=== PATIENT | female | born 1985 | race American Indian/Alaskan Native ===

== ENCOUNTER 2019-12-22 15:45 | Emergency (ER) | payer MEDICAID ==
[2019-12-22 16:17] VITALS: BP 132/92
--- NOTE | 2019-12-22 18:43 | Emergency Department Report ---
ED General Adult HPI - General Chief complaint: Weakness Stated complaint: BLOOD PRESSURE Time Seen by Provider: 12/22/19 18:35 Source: patient Mode of arrival: Ambulatory Limitations: No Limitations - History of Present Illness Initial comments: The patient was evaluated in the emergency department for symptoms described in the history of present illness. He/she was evaluated in the context of the global COVID-19 pandemic, which necessitated consideration that the patient might be at risk for infection with the virus that causes COVID-19. Institu tional protocols and algorithms that pertain to the evaluation of patients at risk for COVID-19 are in a state of rapid change based on information released by regulatory bodies including the CDC and federal and state organizations. These policies and algorithms were followed during the patient's care in the emergency department. Please note that these policies, procedures and recommendations changed on a rapid basis. 34-year-old -[place] female presents to the emergency room complaining of weakness. Patient states that she has been having a low blood pressure reading at home. Patient also reports that she has been on a 21-day fast. Patient states that she has been drinking liquids from 6 AM to 6 PM and from 12- 8 vegetables and had 1 week of meats. Patient states that she is drinking plenty of fluids. Patient does admit to a headache and had nausea in the morning. Patient admits to smoking weed but not in the last 21 days she socially drinks but not in the last 21 days. She does not smoke cigarettes. Patient reported to me as I was coming into the exam room that she was having anxiety issues. Patient states that her lowest blood pressure has been 96/55. Blood pressure in triage is 132/92. Patient reports no past medical history currently takes no medications on a daily basis no surgeries. No allergies. - Related Data Allergies Allergy/AdvReac Type Severity Reaction Status Date / Time No Known Allergies Allergy Unverified 12/22/19 16:15 ED Review of Systems ROS: Stated complaint: BLOOD PRESSURE Other details as noted in HPI Comment: All other systems reviewed and negative ED Past Medical Hx - Past Medical History Previous Medical History?: No - Surgical History Past Surgical History?: No ED Physical Exam - General Limitations: No Limitations General appearance: alert, in no apparent distress - Head Head exam: Present: atraumatic, normocephalic - Eye Eye exam: Present: normal appearance - ENT ENT exam: Present: mucous membranes moist - Neck Neck exam: Present: normal inspection - Respiratory Respiratory exam: Present: normal lung sounds bilaterally. Absent: respiratory distress - Cardiovascular Cardiovascular Exam: Present: regular rate, normal rhythm. Absent: systolic murmur, diastolic murmur, rubs, gallop - GI/Abdominal GI/Abdominal exam: Present: soft, normal bowel sounds - Extremities Exam Extremities exam: Present: normal inspection - Back Exam Back exam: Present: normal inspection - Neurological Exam Neurological exam: Present: alert, oriented X3 - Expanded Neurological Exam Expanded Patient oriented to: Present: person, place, time Cranial nerves: EOM's Intact: Normal, Gag Reflex: Normal, Tongue Deviation: Normal, Nystagmus: Normal, Facial Sensation: Normal, Facial Palsy with Forehead Movement: Normal, Facial Palsy without Forehead Movement: Normal Cerebellar function: Finger to Nose: Normal, Heel to [place]: Normal, Romberg: Normal Upper motor neuron: Denis Neglect: Normal, Pronator Drift: Normal, Sensory Extinction: Normal Sensory exam: Upper Extremity Light Touch: Normal, Upper Extremity Pin Prick: Normal, Upper Extremity Temperature: Normal, UE 2 Point Discrimination: Normal, Lower Extremity Light Touch: Normal, Lower Extremity Pin Prick: Normal, Lower Extremity Temperature: Normal, LE 2 Point Discrimination: Normal Motor strength exam: RUE: 4, LUE: 4, RLE: 4, LLE: 4 Best Eye Response (Arnaldo): (4) open spontaneously Best Motor Response ([place]): (6) obeys commands Best Verbal Response ([place]): (5) oriented [place] Total: 15 - Psychiatric Psychiatric exam: Present: normal affect, normal mood - Skin Skin exam: Present: warm, dry, intact, normal color. Absent: rash ED Course Vital Signs 12/22/19 16:13 Temperature 97.8 F Pulse Rate 62 Respiratory 18 Rate Blood Pressure 132/92 O2 Sat by Pulse 100 Oximetry ED Medical Decision Making - Medical Decision Making 34-year-old -[place] female presents to the emergency room complaining of weakness. Patient states that she has been having a low blood pressure reading at home. Patient also reports that she has been on a 21-day fast. Patient states that she has been drinking liquids from 6 AM to 6 PM and from 12- 8 vegetables and had 1 week of meats. Patient states that she is drinking plenty of fluids. Patient does admit to a headache and had nausea in the morning. Patient admits to smoking weed but not in the last 21 days she socially drinks but not in the last 21 days. She does not smoke cigarettes. Patient reported to me as I was coming into the exam room that she was having anxiety issues. Patient states that her lowest blood pressure has been 96/55. Blood pressure in triage is 132/92. Patient reports no past medical history currently takes no medications on a daily basis no surgeries. No allergies. Discussed with patient she needs to discontinue fasting or increase her fluids and add a teaspoon of salt to every 2 large bottles of water. She can also incorporate Gatorade which will help with her electrolytes and weakness. Critical care attestation.: If time is entered above; I have spent that time in minutes in the direct care of this critically ill patient, excluding procedure time. ED Disposition Clinical Impression: Weakness Disposition: DC-01 TO HOME OR SELFCARE Is pt being admited?: No Does the pt Need Aspirin: No Condition: Stable Instructions: Weakness (ED) Additional Instructions: Discussed with patient she needs to discontinue fasting or increase her fluids and add a teaspoon of salt to every 2 large bottles of water. She can also incorporate Gatorade which will help with her electrolytes and weakness. Referrals: RODRIGUE MOJICA MD [Staff Physician] - 3-5 Days Forms: Work/School Release Form(ED)
== END 2019-12-22 18:53 | disposition home or self-care (01) ==
LOC: ED 15:45
DX: R53.1 Weakness (principal); F41.9 Anxiety disorder, unspecified; R51.9 Headache, unspecified; R11.0 Nausea
CPT/HCPCS: 99282